=== PATIENT | female | born 1985 | race Caucasian/White ===

== ENCOUNTER 2017-11-25 17:08 | Emergency (ER) | payer OTHER ==
[~2017-11-25] VITALS: Ht 175.3 cm; Wt 90.7 kg
[~2017-11-25 17:08] MED LIST: AMOCLA500 PO; AMOX500 PO; AZIT250 PO; Amoxicillin875 MG PO; Bactrim Ds Tab1 EACH PO; CEPH500 PO; CYCL10 PO; Cipro500 MG PO; Flonase 0.05% N16 GM; HYDACE5 PO; IBUP400; IBUP800 PO; KETO10 PO; Keflex500 MG PO; MEDR10 PO; META800 PO; MULVITMINE PO; Macrobid 100 M100 MG PO; NAPR500 PO; NAPR550; NAPR550 PO; NEOCOLOTSU RIGHTEAR; OXYACE5T PO; PHENA200 PO; POLTRIOPSO OU; PRED10 PO; PRED20 PO; PROACE100 PO; PROCODE120 PO; PROM25 PO; Percocet 5-3251 EACH PO; Phentermine HCl15 MG PO; Prednisone20 MG PO; Pyridium200 MG PO; RANI150 PO; RXCEPH500 PO; RXNAPNA550 PO; RXPROCODSY PO; RXSULTRIDS PO; SULTRIDS PO; TRAM50 PO; Ultram50 MG PO; Zofran4 MG PO
[2017-11-25] MEDS ORDERED: Robaxin500 MG PO (19:04)
[2017-11-25] MEDS ORDERED: Norco 5-325 Ta1 EACH PO (19:04)
[2017-11-25] MEDS ORDERED: IBUP800 PO (19:04)
== END 2017-11-25 19:09 | disposition home or self-care (01) ==
LOC: ER 17:08
DX: M54.5 Low back pain (principal); G89.29 Other chronic pain; F17.200 Nicotine dependence, unspecified, uncomplicated
CPT/HCPCS: 72100; 96372; 99284; J1885

== ENCOUNTER 2018-09-06 14:40 | Emergency (ER) | payer MEDICAID ==
[~2018-09-06] VITALS: Ht 177.8 cm; Wt 99.8 kg
[~2018-09-06 14:40] MED LIST changes: +Norco 5-325 Ta1 EACH PO; +Robaxin500 MG PO
[2018-09-06] MEDS ORDERED: Naprosyn500 MG PO (15:40)
== END 2018-09-06 15:51 | disposition home or self-care (01) ==
LOC: ER 14:40
DX: M72.2 Plantar fascial fibromatosis (principal); Z79.899 Other long term (current) drug therapy; F17.210 Nicotine dependence, cigarettes, uncomplicated
CPT/HCPCS: 99282

== ENCOUNTER 2019-12-06 21:56 | Emergency (ER) | payer OTHER ==
[~2019-12-06] VITALS: Ht 175.3 cm; Wt 108.0 kg
[~2019-12-06 21:56] MED LIST changes: +Naprosyn500 MG PO
[2019-12-06] MEDS ORDERED: PENVK500 PO (23:20)
== END 2019-12-06 23:30 | disposition home or self-care (01) ==
LOC: ER 21:56
DX: K04.7 Periapical abscess without sinus (principal); K02.9 Dental caries, unspecified; F17.210 Nicotine dependence, cigarettes, uncomplicated
CPT/HCPCS: 41800; 99283-25; A9270-GY

== ENCOUNTER → 2022-03-02 | Outpatient (CLI) | payer OTHER ==
[~2022-03-02] MED LIST changes: +PENVK500 PO
[2022-03-08 10:11] LABS: HPV 16 Negative (Negative); HPV 18 Negative (Negative); HPV OTHER HR TYPES Negative (Negative)
== END | disposition home or self-care (01) ==
LOC: LAB SHORT 12:23 → LAB 12:23
PROVIDERS: Physician Assistant
DX: Z01.419 Encounter for gynecological examination (general) (routine) without abnormal findings (principal)
CPT/HCPCS: 87624; G0123

== ENCOUNTER 2025-05-25 09:13 | Emergency (ER) | payer OTHER ==
[~2025-05-25] VITALS: Ht 175.3 cm; Wt 89.8 kg
[2025-05-25] MEDS ORDERED: Ketorolac Tromethamine 30mg Vial IV ONE (09:35)
[2025-05-25] MEDS ORDERED: Ondansetron HCl 2 MG / ML 2ML Vial IV ONE (09:35)
[2025-05-25] MEDS ORDERED: NS 1,000 ML IV SCH (09:35)
[2025-05-25 10:10] LABS: BASOPHILS ABSOLUTE AUTO 0.03 K/mm3 (0.00-0.23); BASOPHILS PERCENT AUTO 1 % (0-2); EOSINOPHILS ABSOLUTE AUTO 0.01 K/mm3 (0.00-0.68); EOSINOPHILS PERCENT AUTO 0 % (0-6); Hematocrit 45.2 % (33.0-51.0); Hemoglobin 15.6 g/dL (11.5-16.0); IMMATURE GRAN ABSOLUTE AUTO 0.02 K/mm3 (0.00-0.10); IMMATURE GRAN PERCENT AUTO 0 % (0-1); LYMPHOCYTES ABSOLUTE AUTO 0.68 K/mm3 (0.84-5.20); LYMPHOCYTES PERCENT AUTO 13 % (21-46); MONOCYTES ABSOLUTE AUTO 0.41 K/mm3 (0.16-1.47); MONOCYTES PERCENT AUTO 8 % (4-13); Mean Corpuscular HGB Conc 34.5 g/dL (31.5-36.5); Mean Corpuscular Volume 89 fL (80-100); NEUTROPHILS ABSOLUTE AUTO 4.01 K/mm3 (1.96-9.15); NEUTROPHILS PERCENT AUTO 78 % (41-73); NRBC ABSOLUTE 0.00 K/mm3 (0.00-0.02); NRBC Auto 0.0 /100 WBC (0.0-0.2); Platelet Count 217 K/mm3 (150-400); RDW Coefficient Variation 12.3 % (11.7-14.2); RDW Standard Deviation 40.0 fL (35.1-46.3)
[2025-05-25 10:26] LABS: Source, Urine Clean Catch
[2025-05-25 10:32] LABS: Alanine Aminotransfer (ALT/SGP 30.0 U/L (12-78); Albumin, Blood 3.1 g/dL (3.4-5.0); Albumin/Globulin Ratio 0.8 (0.8-1.8); Anion Gap 7.0 mmol/L (3-11); Aspartate Aminotrans (AST/SGOT 26.0 U/L (12-37); Bilirubin, Total 0.9 mg/dL (0.1-1.0); Blood Urea Nitrogen 12.0 mg/dL (8-24); CO2, Blood 28.0 mmol/L (21-32); Calcium, Blood 8.5 mg/dL (8.5-10.1); Chloride, Blood 100.0 mmol/L (98-108); Creatinine, Blood 0.86 mg/dL (0.40-1.00); Globulin, Blood 3.9 g/dL (2.2-4.0); Glucose, Blood 105.0 mg/dL (70-99); Potassium, Blood 3.5 mmol/L (3.5-5.5); Sodium, Blood 131.0 mmol/L (136-145); Total Protein, Blood 7.0 g/dL (6.4-8.2)
[2025-05-25 10:34] LABS: Color, Urine Yellow (P-Yellow); Glucose Qualitative, Urine Neg (Neg); Ketones, Urine 3+ (Neg); Leukocyte Esterase, Urine 3+ (Neg); Protein, Urine 2+ (Neg); Specific Gravity, Urine 1.020 (1.003-1.022); Urobilinogen, Urine 2+ (Normal)
[2025-05-25 10:54] LABS: Bilirubin, Urine 1+ (Neg)
[2025-05-25 11:01] LABS: Trichomonas Many /hpf
[2025-05-25 11:22] LABS: U Amphetamine Screen DETECTED; U Barbituate Screen Not Detected; U Benzodiazapine Screen Not Detected; U Buprenorphine Screen Not Detected; U Cannabinoids Screen Not Detected; U Cocaine Screen Not Detected; U Methadone Screen Not Detected; U Methamphetamine Screen DETECTED; U Opiates Screen Not Detected; U Oxycodone Screen Not Detected; U Phencyclidine Screen Not Detected
[2025-05-25] MEDS ORDERED: CEFP200 PO (12:07)
[2025-05-25 12:21] VITALS: BP 116/82
== END 2025-05-25 12:22 | disposition home or self-care (01) ==
LOC: ER 09:13
PROVIDERS: Emergency Medicine
DX: N20.0 Calculus of kidney (principal); F17.210 Nicotine dependence, cigarettes, uncomplicated; F15.90 Other stimulant use, unspecified, uncomplicated
CPT/HCPCS: 74176; 80053; 81001; 84703; 85025; 87086; 96361; 96374; 96375; 99284-25; J1885; J2405; J7030